=== PATIENT | male | born 1995 | race Caucasian/White ===

== ENCOUNTER 2017-06-30 12:21 | Emergency (ER) | payer OTHER ==
[~2017-06-30] VITALS: Ht 160 cm; Wt 63.1 kg
[~2017-06-30 12:21] MED LIST: Ambien PO; BACLOFEN10 MG PO; CONCERTA36 MG PO; DEPAKOTE250 MG PO; Depakote PO; FLEXERIL5 MG PO; INDERAL40 MG PO; KEFLEX500 MG PO; LORTAB 5-325 M1 EACH PO; MOTRIN IB200 MG PO; MOTRIN600 MG PO; Maalox, Mylanta PO; NAPROSYN500 MG PO; NAPROXEN500 MG PO; PERCOCET 5/31 TABLET PO; SEROQUEL100 MG; Strattera PO; TRAMADOL HCL50 MG PO; TYLENOL REGULA325 MG PO; ULTRACET1 TABLET PO
[2017-06-30] MEDS ORDERED: NORCO 5/3251 TABLET PO (14:47)
[2017-06-30] MEDS ORDERED: NAPROSYN500 MG PO (14:47)
[2017-06-30 15:17] VITALS: BP 148/88
== END 2017-06-30 15:27 | disposition home or self-care (01) ==
LOC: EME 12:21
DX: S83.412A Sprain of medial collateral ligament of left knee, initial encounter (principal); W21.89XA Striking against or struck by other sports equipment, initial encounter; Y93.64 Activity, baseball; Y92.320 Baseball field as the place of occurrence of the external cause; Z98.890 Other specified postprocedural states; F17.200 Nicotine dependence, unspecified, uncomplicated
CPT/HCPCS: 73564; 99281; 99284

== ENCOUNTER 2017-09-11 12:36 | Emergency (ER) | payer OTHER ==
[~2017-09-11] VITALS: Ht 160 cm; Wt 66.0 kg
[~2017-09-11 12:36] MED LIST changes: +NORCO 5/3251 TABLET PO
[2017-09-11] MEDS ORDERED: ULTRAM50 MG PO (14:41)
[2017-09-11] MEDS ORDERED: NAPROSYN500 MG PO (14:41)
[2017-09-11 15:18] VITALS: BP 130/77
== END 2017-09-11 14:56 | disposition home or self-care (01) ==
LOC: EME 12:36
PROC: 2W38X1Z Immobilization of Right Upper Extremity using Splint (ICD-10-PCS; principal; 2017-09-11)
DX: S60.221A Contusion of right hand, initial encounter (principal); W23.0XXA Caught, crushed, jammed, or pinched between moving objects, initial encounter; Y92.810 Car as the place of occurrence of the external cause; F17.200 Nicotine dependence, unspecified, uncomplicated
CPT/HCPCS: 73130; 99281; 99283